=== PATIENT | female | born 1985 | race African-American/Black ===

== ENCOUNTER 2018-01-30 01:24 | Emergency (ER) | payer BC ==
[~2018-01-30] VITALS: Ht 157.5 cm; Wt 55.3 kg
[2018-01-30 01:38] VITALS: BP 132/79
== END 2018-01-30 02:03 | disposition home or self-care (01) ==
LOC: ER 01:32
DX: H66.91 Otitis media, unspecified, right ear (principal); Z60.2 Problems related to living alone
CPT/HCPCS: 99283; A4606; Z7610

== ENCOUNTER 2022-04-18 13:18 | Emergency (ER) | payer SELFPAY ==
[~2022-04-18] VITALS: Ht 157.5 cm; Wt 57.6 kg
[2022-04-18 13:25] VITALS: BP 139/75
== END 2022-04-18 14:35 | disposition home or self-care (01) ==
LOC: ER 13:26
DX: R59.1 Generalized enlarged lymph nodes (principal); Z60.2 Problems related to living alone
CPT/HCPCS: 99281; A6403